=== PATIENT | female | born 1980 | race Caucasian/White ===

== ENCOUNTER 2016-07-21 15:04 | Emergency (ER) | payer OTHER ==
[~2016-07-21] VITALS: Ht 167.6 cm; Wt 70.8 kg
[~2016-07-21 15:04] MED LIST: HYDR-2666 PO; LEVO137T2 PO; LEVO137T3 PO; OMEP10CA3 PO; OMEP40CA5 PO; ONDA4TAB10 SL; SUCR1TAB29 PO
[2016-07-21] MEDS ORDERED: ONDANSETRON PF 4 MG/2 ML VIAL. ONE (15:59)
[2016-07-21] MEDS ORDERED: IV NORMAL SALINE 1,000ML 1,000 ML ONE (15:59)
[2016-07-21] MEDS ORDERED: PANTOPRAZOLE IV PUSH 40 MG VIAL. IVP ONE ×2 (16:00→16:20)
--- NOTE | 2016-07-21 16:00 | PHYS DOC ---
Text Departure: Impression: Primary Impression: Gastritis Additional Impression: Abdominal pain Disposition: 01 HOME, SELF-CARE Condition: IMPROVED Patient Instructions: Nausea and Vomiting Additional Instructions: take liquid diet for 12 hours Scripts Hydrocodone Bit/Acetaminophen ([place] 5-325 Tablet)1 Each Tablet1 Tab PO PRN Q6HRS PRN PAIN #12 TAB Ref 0 Prov:YARELIS HAYS MD 07/21/16 Ondansetron (Zofran Odt)4 Mg Tab.rapdis1 Tab SL Q8HRS #15 TAB Prov:YARELIS HAYS MD 07/21/16 General Chief Complaint: ABDOMINAL PAIN Stated Complaint: ABDOMINAL PAIN, NAUSEA, AND VOMITING BLOOD Time Seen by MD: 15:06 Source: patient Problems: History of Present Illness Initial Comments 36-year-old female patient history of gastric bypass 13 years ago and GI bleeding one year ago complaining of sudden onset of epigastric pain as a constant aching pain with episodes of sharp pain without radiation since 2 AM that gradually getting worse. Patient rated her pain 8/10. Patient complaining of multiple episodes of vomiting every 10 or 15 minutes and states she had 6 episodes of bright red blood. Patient denies sick contacts, , diarrhea , fever and chills and urinary symptom except for decrease of urine output. Patient states she was able to drink some water. Allergies: Coded Allergies: No Known Drug Allergies (Unverified , 07/21/16) Past Medical History Surgical History: other (gastric bypass) Social History Drugs: none Review of Systems Constitutional: see HPI EENTM: see HPI Respiratory: see HPI Cardiovascular: see HPI Gastrointestinal: see HPI Genitourinary: see HPI Musculoskeletal: see HPI Skin: see HPI Psychiatric/Neurological: see HPI Hematologic/Lymphatic: see HPI Immunological/Allergic: see HPI All Other Systems: Reviewed and Negative Physical Exam General Appearance: WD/WN, mild distress Eyes: bilateral eye PERRL, bilateral eye normal inspection Ear, Nose, Throat: hearing grossly normal, normal ENT inspection Neck: non-tender, full range of motion, supple Respiratory: chest non-tender, lungs clear, normal breath sounds Cardiovascular: normal peripheral pulses, regular rate, rhythm, no edema Gastrointestinal: normal bowel sounds, non tender, soft, no organomegaly, no pulsatile mass Back: normal inspection, no CVA tenderness, no vertebral tenderness Extremities: normal range of motion, non-tender, normal inspection Neurologic/Psychiatric: no motor/sensory deficits, alert, normal mood/affect, oriented x 3 Skin: normal color, warm/dry Orders, Labs, Meds Patient presented to ER with complaining of nausea and vomiting and red blood in some episode of vomiting with abdominal pain. patient had unremarkable physical exam and labs except for white count of 14,000. Patient felt better after treatment in ER and tolerated oral intake. Plan discharge patient home with diagnosis of acute gastritis.Patient did not have blood vomiting in ER. YARELIS HAYS MD Jul 21, 2016 16:00
[2016-07-21 16:11] LABS: BASO # 0.1 x10^3/uL (0.0-0.2); BASO % 1 % (0-3); EOS % 0 % (0-3); HEMATOCRIT 40.1 % (36.0-47.0); HEMOGLOBIN 13.2 g/dL (12.0-15.5); LYMPH # 2.9 x10^3/uL (1.0-4.8); LYMPH % 20 % (24-48); MEAN CORPUSCULAR HEMOGLOBIN 30 pg (25-35); MEAN CORPUSCULAR HGB CONC 33 g/dL (31-37); MEAN CORPUSCULAR VOLUME 91 fL (79-100); MONO # 0.6 x10^3/uL (0.0-1.1); MONO % 4 % (0-9); NEUT # 10.8 x10^3uL (1.8-7.7); NEUT % 75 % (31-73); PLATELET COUNT 300 x10^3/uL (140-400); RED BLOOD COUNT 4.42 x10^6/uL (3.50-5.40); WHITE BLOOD COUNT 14.4 x10^3/uL (4.0-11.0)
[2016-07-21 16:15] LABS: PREG TEST PT QUAL NEGATIVE (NEG)
[2016-07-21 16:16] LABS: ALBUMIN/GLOBULIN RATIO 1.1 (1.0-1.7); CALCIUM 9.3 mg/dL (8.5-10.1); CREATININE 0.7 mg/dL (0.6-1.0); GFR 94.2; POTASSIUM 3.8 mmol/L (3.5-5.1); TOTAL BILIRUBIN 0.7 mg/dL (0.2-1.0); TOTAL PROTEIN 7.8 g/dL (6.4-8.2)
[2016-07-21] MEDS ORDERED: ONDANSETRON PF 4 MG/2 ML VIAL. IV ONE (16:20)
[2016-07-21] MEDS ORDERED: IV NORMAL SALINE 1,000ML 1,000 ML IV SCH (16:20)
[2016-07-21] MEDS ORDERED: MORPHINE SULFATE 4 MG/ML DISP.SYRIN. IV ONE (17:15)
[2016-07-21 17:28] LABS: BARBITURATES NEG (NEG); BENZODIAZEPINES NEG (NEG); CANNABINOIDS NEG (NEG); COCAINE NEG (NEG); METHADONE NEG (NEG); OPIATES NEG (NEG); PHENCYCLIDINE NEG (NEG)
[2016-07-21 17:33] LABS: AMPHETAMINE/METHAMPHETAMINE NEG (NEG)
[2016-07-21 17:44] LABS: BILIRUBIN,URINE NEG (NEG); CLARITY,URINE CLOUDY; COLOR,URINE YELLOW; GLUCOSE,URINE NEG (NEG); NITRITE,URINE NEG (NEG); UROBILINOGEN,URINE 2 mg/dL (0.2 mg/dL)
[2016-07-21 17:46] LABS: BACTERIA,URINE MANY /HPF (0-FEW); SQUAMOUS EPITHELIAL CELL,UR MANY /LPF
[2016-07-21 17:52] VITALS: BP 106/60
[2016-07-21] MEDS ORDERED: HYDR-971 PO (18:03)
[2016-07-21] MEDS ORDERED: ONDA4TAB10 SL (18:03)
[2016-07-21 22:02] LABS: PLT ESTIMATE ADEQUATE (ADEQUATE)
== END 2016-07-21 18:06 | disposition home or self-care (01) ==
LOC: ER 15:04
DX: K29.00 Acute gastritis without bleeding (principal); Z98.84 Bariatric surgery status
CPT/HCPCS: 36415; 80053; 81001; 83690; 84703; 85008; 85027; 85610; 87086; 96361; 96374; 96375; 99284; C9113; G0481; J2270; J2405; J7030